=== PATIENT | female | born 1945 | race Caucasian/White ===

== ENCOUNTER 2020-08-13 02:25 | Observation (INO) | payer OTHER ==
[~2020-08-13] VITALS: Ht 160 cm; Wt 61.0 kg
[2020-08-13] MEDS ORDERED: AUGMENTIN 500-500 MG PO (06:20)
[2020-08-13] MEDS ORDERED: ALENDRONATE SOD70 MG PO (06:20)
[2020-08-13] MEDS ORDERED: WARFARIN SODIU2.5 MG PO (06:21)
[2020-08-13] MEDS ORDERED: ALDACTONE 25MG25 MG PO (06:22)
[2020-08-13] MEDS ORDERED: ATORVASTATIN CA20 MG PO (06:22)
[2020-08-13] MEDS ORDERED: LISINOPRIL2.5 MG PO (06:22)
[2020-08-13] MEDS ORDERED: CILOSTAZOL50 MG PO (06:22)
[2020-08-13] MEDS ORDERED: MAGNESIUM OXID400 M2 PO (06:23)
[2020-08-13] MEDS ORDERED: DONEPEZIL HCL5 MG PO (06:23)
[2020-08-13] MEDS ORDERED: VITAMIN D21250 MCG PO (06:23)
[2020-08-13] MEDS ORDERED: IMDUR ER TAB 3030 MG PO (06:24)
[2020-08-13] MEDS ORDERED: DEXILANT60 MG PO (06:24)
[2020-08-13] MEDS ORDERED: LEVOTHYROXINE25 MCG PO (06:24)
[2020-08-13] MEDS ORDERED: ROPINIROLE HCL0.5 MG PO (06:25)
[2020-08-13] MEDS ORDERED: KLONOPIN TAB 00.5 MG PO (06:25)
[2020-08-13] MEDS ORDERED: QUETIAPINE FUM100 MG PO (06:25)
[2020-08-13] MEDS ORDERED: CYCLOBENZAPRINE10 MG PO (06:26)
[2020-08-13] MEDS ORDERED: VITAMIN B-12500 MC2 PO (06:26)
[2020-08-13] MEDS ORDERED: CALCIUM 600 MG1 EACH PO (06:27)
[2020-08-13] MEDS ORDERED: METOPROLOL SUCC50 MG PO (06:27)
[2020-08-13] MEDS ORDERED: CLONAZEPAM1 MG PO (06:28)
[2020-08-13] MEDS ORDERED: FEOSOL325 MG PO (06:28)
[2020-08-13] MEDS ORDERED: SODIUM BICARBO650 M1 PO (06:29)
[2020-08-13] MEDS ORDERED: ALBUTEROL0.63 MG/3 INH (06:29)
[2020-08-13 09:59] LABS: HEMOGLOBIN 11.1 gm/dl (12.3-15.3); RED BLOOD COUNT 3.47 M/UL (4.00-5.10); WHITE BLOOD COUNT 8.8 K/UL (4.5-11.0)
[2020-08-14 07:30] LABS: HEMOGLOBIN 10.3 gm/dl (12.3-15.3); RED BLOOD COUNT 3.24 M/UL (4.00-5.10)
[2020-08-14 07:34] LABS: WHITE BLOOD COUNT 12.5 K/UL (4.5-11.0)
[2020-08-15 03:45] LABS: RED BLOOD COUNT 3.34 M/UL (4.00-5.10); WHITE BLOOD COUNT 9.4 K/UL (4.5-11.0)
[2020-08-16] MEDS ORDERED: PERCOCET 5/325 T1 EA PO (08:36)
--- NOTE | 2020-08-16 11:51 | NUR ---
REPORTED TO HOME [facility] ADMITTING NURSE MIR
== END 2020-08-16 12:37 | disposition home or self-care (01) ==
LOC: M/S 05:22
PROVIDERS: Internal Medicine; Physician Assistant; ADMIT Internal Medicine
DX: M48.56XA Collapsed vertebra, not elsewhere classified, lumbar region, initial encounter for fracture (principal); M47.816 Spondylosis without myelopathy or radiculopathy, lumbar region; D53.9 Nutritional anemia, unspecified; I10 Essential (primary) hypertension; E03.9 Hypothyroidism, unspecified; F03.90 Unspecified dementia, unspecified severity, without behavioral disturbance, psychotic disturbance, mood disturbance, and anxiety; Z23 Encounter for immunization; Z79.01 Long term (current) use of anticoagulants; Z86.73 Personal history of transient ischemic attack (TIA), and cerebral infarction without residual deficits; Z79.899 Other long term (current) drug therapy
CPT/HCPCS: 36415; 71045; 72148; 74018; 80048; 81001; 82550; 82553; 84484; 85025; 85027; 85610; 86140; 93005; 96372; 97110-GP-CQ; 97162; 97530-GP-CQ; G0378; G0379; J3486; J7030

== ENCOUNTER 2020-09-05 22:16 | Inpatient (IN) | payer OTHER ==
[~2020-09-05] VITALS: Ht 162.6 cm; Wt 59.9 kg
[~2020-09-05 22:16] MED LIST: ALBUTEROL0.63 MG/3 INH; ALDACTONE 25MG25 MG PO; ALENDRONATE SOD70 MG PO; ATORVASTATIN CA20 MG PO; AUGMENTIN 500-500 MG PO; CALCIUM 600 MG1 EACH PO; CILOSTAZOL50 MG PO; CLONAZEPAM1 MG PO; CYCLOBENZAPRINE10 MG PO; DEXILANT60 MG PO; DONEPEZIL HCL5 MG PO; FEOSOL325 MG PO; IMDUR ER TAB 3030 MG PO; KLONOPIN TAB 00.5 MG PO; LEVOTHYROXINE25 MCG PO; LISINOPRIL2.5 MG PO; MAGNESIUM OXID400 M2 PO; METOPROLOL SUCC50 MG PO; PERCOCET 5/325 T1 EA PO; QUETIAPINE FUM100 MG PO; ROPINIROLE HCL0.5 MG PO; SODIUM BICARBO650 M1 PO; VITAMIN B-12500 MC2 PO; VITAMIN D21250 MCG PO; WARFARIN SODIU2.5 MG PO
[2020-09-05 23:12] LABS: HEMOGLOBIN 8.2 gm/dl (12.3-15.3); RED BLOOD COUNT 2.56 M/UL (4.00-5.10); WHITE BLOOD COUNT 9.6 K/UL (4.5-11.0)
[2020-09-06 03:49] LABS: BORDETELLA PARAPERTUSSIS Not Detected (Not Detectd); BORDETELLA PERTUSSIS Not Detected (Not Detectd); CHLAMYDIA PNEUMONIAE Not Detected (Not Detectd); CORONAVIRUS HKU1 Not Detected (Not Detectd); CORONAVIRUS NL63 Not Detected (Not Detectd); CORONAVIRUS OC43 Not Detected (Not Detectd); CORONOAVIRUS 229E Not Detected (Not Detectd); HUMAN METAPNEUMOVIRUS Not Detected (Not Detectd); HUMAN RHINOVIRUS/ENTEROVIRUS Not Detected (Not Detectd); INFLUENZA A Not Detected (Not Detectd); INFLUENZA B Not Detected (Not Detectd); MYCOPLASMA PNEUMONIAE Not Detected (Not Detectd); PARAINFLUENZA VIRUS 1 Not Detected (Not Detectd); PARAINFLUENZA VIRUS 2 Not Detected (Not Detectd); PARAINFLUENZA VIRUS 3 Not Detected (Not Detectd); PARAINFLUENZA VIRUS 4 Not Detected (Not Detectd); RESPIRATORY SYNCYTIAL VIRUS Not Detected (Not Detectd)
[2020-09-06 11:23] LABS: SARS-CoV-2 NOT DETECTED (Not Detectd)
[2020-09-06] MEDS ORDERED: ELIQUIS5 MG PO (15:13)
[2020-09-06] MEDS ORDERED: HYDRALAZINE HCL50 MG PO (15:14)
[2020-09-06] MEDS ORDERED: LOPRESSOR50 MG PO (15:17)
[2020-09-07 05:40] LABS: HEMOGLOBIN 8.1 gm/dl (12.3-15.3); RED BLOOD COUNT 2.56 M/UL (4.00-5.10); WHITE BLOOD COUNT 7.6 K/UL (4.5-11.0)
[2020-09-08 07:30] LABS: HEMOGLOBIN 8.7 gm/dl (12.3-15.3); RED BLOOD COUNT 2.76 M/UL (4.00-5.10); WHITE BLOOD COUNT 7.6 K/UL (4.5-11.0)
[2020-09-09 04:51] LABS: HEMOGLOBIN 8.9 gm/dl (12.3-15.3); RED BLOOD COUNT 2.84 M/UL (4.00-5.10)
[2020-09-09 04:56] LABS: WHITE BLOOD COUNT 11.6 K/UL (4.5-11.0)
[2020-09-10 05:55] LABS: HEMOGLOBIN 8.6 gm/dl (12.3-15.3); RED BLOOD COUNT 2.7 M/UL (4.00-5.10); WHITE BLOOD COUNT 8.9 K/UL (4.5-11.0)
[2020-09-13 08:05] LABS: HEMOGLOBIN 8.5 gm/dl (12.3-15.3); RED BLOOD COUNT 2.75 M/UL (4.00-5.10); WHITE BLOOD COUNT 15.6 K/UL (4.5-11.0)
[2020-09-13] MEDS ORDERED: DONEPEZIL HCL5 MG PO (14:08)
[2020-09-13] MEDS ORDERED: HYDROCODON-ACE1 EAC4 PO (14:08)
== END 2020-09-13 17:45 | disposition home health service (06) | DRG 177 ==
LOC: ER1 22:16 → CDU 09-06 03:09 → M/S 09-06 03:09
PROVIDERS: Emergency Medicine; Internal Medicine; ADMIT Internal Medicine
DX: J15.6 Pneumonia due to other Gram-negative bacteria (principal); J96.21 Acute and chronic respiratory failure with hypoxia; G93.41 Metabolic encephalopathy; I21.9 Acute myocardial infarction, unspecified; I69.354 Hemiplegia and hemiparesis following cerebral infarction affecting left non-dominant side; M48.56XA Collapsed vertebra, not elsewhere classified, lumbar region, initial encounter for fracture; N17.9 Acute kidney failure, unspecified; Z20.822 Contact with and (suspected) exposure to COVID-19; F03.90 Unspecified dementia, unspecified severity, without behavioral disturbance, psychotic disturbance, mood disturbance, and anxiety; I25.10 Atherosclerotic heart disease of native coronary artery without angina pectoris; E03.9 Hypothyroidism, unspecified; E78.5 Hyperlipidemia, unspecified; G25.81 Restless legs syndrome; I12.9 Hypertensive chronic kidney disease with stage 1 through stage 4 chronic kidney disease, or unspecified chronic kidney disease; N18.30 Chronic kidney disease, stage 3 unspecified; M51.36 Other intervertebral disc degeneration, lumbar region; J44.9 Chronic obstructive pulmonary disease, unspecified; Z90.49 Acquired absence of other specified parts of digestive tract; Z87.891 Personal history of nicotine dependence; I48.91 Unspecified atrial fibrillation; Z79.01 Long term (current) use of anticoagulants; I73.9 Peripheral vascular disease, unspecified; Z86.718 Personal history of other venous thrombosis and embolism; E87.5 Hyperkalemia; L89.152 Pressure ulcer of sacral region, stage 2; L89.626 Pressure-induced deep tissue damage of left heel; L89.616 Pressure-induced deep tissue damage of right heel; Z22.322 Carrier or suspected carrier of Methicillin resistant Staphylococcus aureus
CPT/HCPCS: ECHO; 36415; 36600; 70450; 71045; 71250; 80048; 80053; 80202; 82550; 82553; 82803; 83605; 83690; 83735; 83880; 84484; 85025; 85379; 85610; 85730; 86140; 87040; 87081; 87633; 93005; 93306; 94640; 94664; 94760; 96365; 96366; 96375; 97110-GP-CQ; 97162; 97167; 97530-GP-CQ; 99285; A6212; J0692; J1650; J2920; J2930; J3370; J3475; J7070; U0002